=== PATIENT | male | born 1980 | race Caucasian/White ===

== ENCOUNTER 2020-09-24 10:25 | Emergency (ER) | payer BC ==
[2020-09-24 10:31] VITALS: RESP 18; TEMP 98.2
[2020-09-24] MEDS ORDERED: LIDOCAINE 5% PATCH TOPICAL STA (10:40)
[2020-09-24] MEDS ORDERED: KETOROLAC 15 MG/ML 1 ML VIAL IM STA (10:41)
[2020-09-24] MEDS ORDERED: CYCLOBENZAPRINE 10 MG TAB PO STA (10:42)
--- NOTE | 2020-09-24 10:45 | ED ---
Back Pain HPI - General Chief Complaint: Back Pain/Injury Stated Complaint: Back pain Time Seen by Provider: 09/24/20 10:32 Source: patient Limitations: no limitations - History of Present Illness Initial Comments: 39-year-old male with history of back pain presents to emergency department with a chief complaint of back pain. Patient reports about one week ago he was moving a large tool box that weighed approximately 200 pounds. Patient reports he bent over with improper mechanics in order to lift it and states his back "gave out". States ever since the incident, he continues to have lower back pain that has intermittent radiation to his left lower extremity along the posterior aspect of the popliteal region. States the pain is exacerbated with ambulation and laying flat. States he has been sleeping her recliner due to the pain. he has been taken ibuprofen with no significant improvement in symptoms. Denies saddle anesthesia, urinary retention with overflow incontinence or bowel incontinence.denies abdominal chest pain. - Related Data Home Medications Medication Instructions Recorded Confirmed Diltiazem Cd [Cardizem Cd] 240 mg PO DAILY 09/24/20 09/24/20 Allergies Allergy/AdvReac Type Severity Reaction Status Date / Time Penicillins Allergy Unknown Verified 09/24/20 11:01 Review of Systems ROS Statement: Those systems with pertinent positive or pertinent negative responses have been documented in the HPI. ROS Other: All systems not noted in ROS Statement are negative. Past Medical History Past Medical History: Hypertension History of Any Multi-Drug Resistant Organisms: None Reported Past Surgical History: Orthopedic Surgery Past Psychological History: No Psychological Hx Reported Smoking Status: Never smoker Past Alcohol Use History: None Reported Past Drug Use History: None Reported General Exam Limitations: no limitations General appearance: alert, in no apparent distress Head exam: Present: atraumatic, normocephalic, normal inspection Eye exam: Present: normal appearance, PERRL, EOMI Pupils: Present: normal accommodation ENT exam: Present: normal exam, normal oropharynx, mucous membranes moist Neck exam: Present: normal inspection, full ROM. Absent: tenderness Respiratory exam: Present: normal lung sounds bilaterally. Absent: respiratory distress Cardiovascular Exam: Present: regular rate, normal rhythm, normal heart sounds GI/Abdominal exam: Present: soft. Absent: distended, tenderness, guarding, rebound Extremities exam: Present: normal inspection, full ROM, normal capillary refill. Absent: tenderness Back exam: Present: normal inspection, full ROM, tenderness, paraspinal tenderness (bilateral paraspinal tenderness in the lumbosacral region), vertebral tenderness (lumbosacral tenderness), other (positive leg raise test in the left lower extremity.) Neurological exam: Present: alert, oriented X3, normal gait Psychiatric exam: Present: normal affect, normal mood Skin exam: Present: warm, dry, intact, normal color Course Vital Signs 09/24/20 10:26 Temperature 98.2 F Pulse Rate 97 Respiratory 18 Rate Blood Pressure 151/103 O2 Sat by Pulse 98 Oximetry Medical Decision Making - Medical Decision Making 39-year-old male presents to the emergency department with a chief complaint of back pain. Physical examination, patient has lumbosacral vertebral and bilateral paraspinal tenderness with radiculopathy going down the left lower extremity. Positive leg raise test. No signs and symptoms of cauda equina. No red flags. X-ray negative. Patient given Lidoderm patch, Toradol and Flexeril. Patient will be discharged with Flexeril. He was advised to follow-up with an outpatient career transition specialist. Return parameters thoroughly discussed patient was understanding and agreeable. Case discussed with Dr. Granados. Disposition Clinical Impression: Mechanical back pain, Strain of lumbar region Disposition: HOME SELF-CARE Condition: Stable Instructions (If sedation given, give patient instructions): Acute Low Back Pain (ED) Additional Instructions: follow-up with career transition specialist. Return to emergency department if symptoms worsen. Is patient prescribed a controlled substance at d/c from ED?: No Referrals: Rickie Childers DO [Primary Care Provider] - 1-2 days Meli Jang DO [Doctor of Osteopathic Medicine] - 1-2 days Time of Disposition: 11:52
--- NOTE | 2020-09-24 11:34 | XR ---
EXAMINATION TYPE: XR lumbar spine 2 or 3V DATE OF EXAM: 09/24/2020 CLINICAL HISTORY: pain TECHNIQUE: Three views of the lumbar spine are submitted. COMPARISON: None. FINDINGS: There are 5 lumbar type vertebral bodies identified. The lumbar spine shows satisfactory alignment w ithout evidence of acute fracture or dislocation. Vertebral body heights are within normal limits. Disc spaces are within normal limits. The overlying soft tissue appears unremarkable. IMPRESSION: No acute fracture or dislocation is seen in the lumbar spine. ICD 10 NO FRACTURE, INITIAL EVALUATION
[2020-09-24] MEDS ORDERED: ACET/COD 300 MG/30 MG STARTER PACK 6 TAB BTL PO STA (11:55)
[2020-09-24 12:10] VITALS: BP 151/101; PULSE 98
== END 2020-09-24 12:10 | disposition home or self-care (01) ==
LOC: EC 10:25
DX: S39.012A Strain of muscle, fascia and tendon of lower back, initial encounter (principal); I10 Essential (primary) hypertension; Z79.899 Other long term (current) drug therapy; Z88.0 Allergy status to penicillin; X50.9XXA Other and unspecified overexertion or strenuous movements or postures, initial encounter
CPT/HCPCS: 72100; 96372; 99283